=== PATIENT | male | born 1935 | race Caucasian/White ===

== ENCOUNTER → 2017-03-17 | Outpatient (CLI) | payer MEDICARE ==
[2017-03-17 16:34] LABS: CHCM 33.9; HCT 48.4 % (39.0-53.0); HDW 2.59; HGB 16.3 gm/dL (13.0-17.5); MCH 32.9 pg (25.0-35.0); MCHC 33.6 g/dL (31.0-37.0); MCV 97.8 fL (80.0-100.0); Mean Platelet Volume 8.7; RBC 4.95 m/uL (4.30-5.90); RDW 14.4 % (11.5-15.5); WBC 6.9 k/uL (3.8-10.6)
[2017-03-17 16:45] LABS: ALT 61 U/L (21-72); AST 34 U/L (17-59)
== END | disposition home or self-care (01) ==
LOC: LABWHC1 16:09
PROVIDERS: ATTEND Dermatology Dermatopathology
DX: L40.0 Psoriasis vulgaris (principal); Z79.899 Other long term (current) drug therapy
CPT/HCPCS: 36415; 84450; 84460; 85027

== ENCOUNTER → 2017-06-08 | Outpatient (CLI) | payer MEDICARE ==
[2017-06-08 09:18] LABS: CH 32.3; CHCM 32.4; HDW 2.68; HGB 16.5 gm/dL (13.0-17.5); MCH 32.4 pg (25.0-35.0); MCHC 32.3 g/dL (31.0-37.0); MCV 100.2 fL (80.0-100.0); Macrocytosis Slight; Mean Platelet Volume 7.2; RBC 5.09 m/uL (4.30-5.90); RDW 14.7 % (11.5-15.5); WBC 5.6 k/uL (3.8-10.6)
[2017-06-08 09:39] LABS: ALT 55 U/L (21-72); AST 36 U/L (17-59)
== END | disposition home or self-care (01) ==
LOC: LABWHC1 08:25
PROVIDERS: ATTEND Dermatology Dermatopathology
DX: L40.0 Psoriasis vulgaris (principal); Z79.899 Other long term (current) drug therapy
CPT/HCPCS: 36415; 84450; 84460; 85027

== ENCOUNTER → 2017-12-18 | Outpatient (CLI) | payer MEDICARE ==
[2017-12-18 15:06] LABS: HCT 44.9 % (39.0-53.0); HGB 15.7 gm/dL (13.0-17.5); MCH 33.4 pg (25.0-35.0); MCHC 34.9 g/dL (31.0-37.0); MCV 95.6 fL (80.0-100.0); Mean Platelet Volume 7.6; Platelet Count 199 k/uL (150-450); RBC 4.69 m/uL (4.30-5.90); RDW 13.5 % (11.5-15.5); WBC 7.9 k/uL (3.8-10.6)
[2017-12-18 15:13] LABS: ALT 51 U/L (21-72); AST 32 U/L (17-59)
== END | disposition home or self-care (01) ==
LOC: LABWHC1 14:43
PROVIDERS: ATTEND Dermatology Dermatopathology
DX: L40.0 Psoriasis vulgaris (principal); Z79.899 Other long term (current) drug therapy
CPT/HCPCS: 36415; 84450; 84460; 85027

== ENCOUNTER → 2018-05-25 | Outpatient (CLI) | payer MEDICARE ==
[2018-05-25 11:12] LABS: HCT 51.9 % (39.0-53.0); MCH 31.6 pg (25.0-35.0); MCHC 32.7 g/dL (31.0-37.0); MCV 96.5 fL (80.0-100.0); Mean Platelet Volume 7.4; Platelet Count 157 k/uL (150-450); RBC 5.38 m/uL (4.30-5.90); RDW 14.2 % (11.5-15.5); WBC 6.2 k/uL (3.8-10.6)
[2018-05-25 12:51] LABS: Albumin 4.2 g/dL (3.5-5.0); Calcium 9.4 mg/dL (8.4-10.2); Total Bilirubin 0.8 mg/dL (0.2-1.3)
[2018-05-25 13:05] LABS: T4, Free (Free Thyroxine) 1.27 ng/dL (0.78-2.19)
[2018-05-25 13:20] LABS: Prostate Specific Antigen 4.82 ng/mL (0.00-4.00)
[2018-05-25 19:04] LABS: Hemoglobin A1C 6.7 % (4.0-6.0)
== END | disposition home or self-care (01) ==
LOC: LABWHC1 10:05
PROVIDERS: ATTEND Family Medicine
DX: Z00.00 Encounter for general adult medical examination without abnormal findings (principal); E11.9 Type 2 diabetes mellitus without complications; E03.9 Hypothyroidism, unspecified; N52.01 Erectile dysfunction due to arterial insufficiency; M06.9 Rheumatoid arthritis, unspecified
CPT/HCPCS: 36415; 80053; 80061; 83036; 84153; 84439; 84443; 85027

== ENCOUNTER → 2019-01-04 | Outpatient (CLI) | payer MEDICARE | END | disposition home or self-care (01) | LOC: LABWHC1 11:17 | PROVIDERS: ATTEND Dermatology Dermatopathology | DX: L40.0 Psoriasis vulgaris (principal); Z79.899 Other long term (current) drug therapy | CPT/HCPCS: 36415; 84450 ==

== ENCOUNTER 2019-02-03 20:05 | Emergency (ER) | payer MEDICARE ==
[2019-02-03 20:22] VITALS: TEMP 98.6
--- NOTE | 2019-02-03 21:37 | ED ---
General Adult HPI - General Source: patient Mode of arrival: ambulatory Limitations: no limitations <Tayo Cr - Last Filed: 02/03/19 22:14> <Jennie Russell - Last Filed: 02/04/19 02:52> - General Chief complaint: Extremity Injury, Lower Stated complaint: Foot injury/ Swelling Time Seen by Provider: 02/03/19 20:30 - History of Present Illness Initial comments: Patient is an 83-year-old male presents emergency Department with left ankle swelling. Patient reports one week ago he was working on his deck when he slipped and felt a pop on the posterior aspect of his left upper leg. Patient reports the following day he was walking downstairs and fell because his left leg "gave out". Patient reports slowly developing ecchymosis along the posterior aspect of the left upper leg sporadically down to his foot. Patient reports waking up yesterday with left ankle edema but no pain. Patient reports he feels slight discomfort but is able to ambulate without difficulty. Patient reports going to an urgent care 5 days ago. They diagnosed him with a hip sprain. Patient denies taking any medication to alleviate the pain. Patient denies any numbness or tingling. Patient denies shortness of breath, chest pain, chest tightness or prolonged periods of inactivity. (Tayo Cr) - Related Data Home Medications Medication Instructions Recorded Confirmed Aspirin 1 tab PO DAILY 04/01/18 04/01/18 Clobetasol Propionate [Impoyz 60 gm TOPICAL DAILY 04/01/18 04/01/18 0.25%] Levothyroxine Sodium [Tirosint] 0.5 mg PO DAILY 04/01/18 04/01/18 [place]-3 Fatty Acids/Fish Oil [Fish 1 cap PO DAILY 04/01/18 04/01/18 Oil 1,000 mg Softgel] Ubidecarenone [Co Q-10] 1 cap PO DAILY 04/01/18 04/01/18 Allergies Allergy/AdvReac Type Severity Reaction Status Date / Time atorvastatin [From Lipitor] AdvReac Unknown Verified 02/03/19 20:22 Review of Systems ROS Other: All systems not noted in ROS Statement are negative. <Tayo Cr - Last Filed: 02/03/19 22:14> ROS Other: All systems not noted in ROS Statement are negative. <Jennie Russell Olesya - Last Filed: 02/04/19 02:52> ROS Statement: Those systems with pertinent positive or pertinent negative responses have been documented in the HPI. Past Medical History Past Medical History: Hyperlipidemia Additional Past Medical History / Comment(s): hard of hearing, colon CA, hypothyroidism, psoriasis History of Any Multi-Drug Resistant Organisms: None Reported Past Surgical History: Appendectomy, Cholecystectomy, Tonsillectomy Additional Past Surgical History / Comment(s): hemicolectomy, bakers cyst removal Additional Past Anesthesia/Blood Transfusion Reaction / Comment(s): hard to wake up Past Psychological History: No Psychological Hx Reported Smoking Status: Former smoker Past Alcohol Use History: Daily Past Drug Use History: None Reported <Tayo Cr - Last Filed: 02/03/19 22:14> General Exam Limitations: no limitations General appearance: alert, in no apparent distress Head exam: Present: atraumatic, normocephalic, normal inspection Eye exam: Present: normal appearance, PERRL, EOMI Pupils: Present: normal accommodation ENT exam: Present: normal exam, mucous membranes moist, TM's normal bilaterally Neck exam: Present: normal inspection Respiratory exam: Present: normal lung sounds bilaterally. Absent: respiratory distress, wheezes, rales Cardiovascular Exam: Present: regular rate, normal rhythm, normal heart sounds Left Hip exam: Present: normal inspection, full ROM. Absent: tenderness, swelling, abrasion, laceration, ecchymosis, erythema Upper Leg exam: Present: full ROM, tenderness (Mild tenderness in the posterior aspect with palpation), ecchymosis (Sporadic ecchymosis). Absent: swelling, erythema Knee exam: Present: normal inspection, full ROM, ecchymosis (Spermatic). Absent: tenderness, swelling, posterior draw sign Lower Leg exam: Present: normal inspection, full ROM, tenderness (Lateral pain.), ecchymosis (Sporadic). Absent: swelling, abrasion, laceration, erythema, Homans' sign Ankle exam: Present: swelling (Localized to the medial and lateral malleoli), ecchymosis Foot/Toe exam: Present: normal inspection, full ROM, swelling Neurovascular tendon exam: Present: no vascular compromise Gait: observed and normal Back exam: Present: normal inspection. Absent: CVA tenderness (R), CVA tenderness (L) Neurological exam: Present: alert, oriented X3 Psychiatric exam: Present: normal affect, normal mood Skin exam: Present: warm, intact, normal color <aTyo Cr - Last Filed: 02/03/19 22:14> Course Vital Signs 02/03/19 02/03/19 20:18 22:27 Temperature 98.6 F 98.6 F Pulse Rate 74 70 Respiratory 20 18 Rate Blood Pressure 136/62 133/70 O2 Sat by Pulse 94 L 97 Oximetry Medical Decision Making <Tayo Cr - Last Filed: 02/03/19 22:14> <Jennie Russell - Last Filed: 02/04/19 02:52> - Medical Decision Making Patient is an 83-year-old male presenting to emergency Department with left ankle swelling. X-ray of the left ankle and left hip is negative for acute fracture or dislocations. Doppler ultrasound is negative for DVTs. Based on physical examination a history of suspect the patient to have a possible muscle tear which would cause the sporadic ecchymosis. Patient advised to monitor the ecchymosis as well as the swelling on the left ankle. Patient advised to keep foot elevated and use hot or cold packs. Patient advised to return to emergency department if symptoms worsen. Patient denies follow primary care. Case discussed with physician. (Tayo Cr) I was available for consultation in the emergency department. The history and physical exam were done by the midlevel provider. I was consulted for this patient's care. I reviewed the case with the midlevel provider and based on their presentation of the patient, I agree with the assessment, medical decision making and plan of care as documented. Chart was dictated using [employer] dictation software. Attempts were made to correct any dictation errors however some typographical errors may persist. (Jennie Russell) Disposition Is patient prescribed a controlled substance at d/c from ED?: No Time of Disposition: 22:17 <Tayo Cr - Last Filed: 02/03/19 22:14> <Jennie Russell - Last Filed: 02/04/19 02:52> Clinical Impression: Ankle sprain Disposition: HOME SELF-CARE Condition: Stable Instructions (If sedation given, give patient instructions): Ankle Sprain (ED) Additional Instructions: Please keep foot elevated and use cold and hot packs for symptomatic control. Please monitor the bruising along the left leg. Please follow-up with primary care. Please return to emergency department if symptoms worsen. Referrals: Jeffery Gill DO [Primary Care Provider] - 1-2 days Lenin Davidson DO [Doctor of Osteopathic Medicine] - 1-2 days
--- NOTE | 2019-02-03 21:46 | XR ---
EXAMINATION TYPE: XR ankle complete LT DATE OF EXAM: 02/03/2019 COMPARISON: NONE HISTORY: Pain TECHNIQUE: 3 views FINDINGS: There is some soft tissue swelling around the ankle joint. There is small degenerative cyst formation in the talus. There is no fracture line seen. There is no dislocation. IMPRESSION: Soft tissue swelling. No fracture seen. There is degenerative cyst formation in the media l dome of the talus.
--- NOTE | 2019-02-03 21:47 | XR ---
EXAMINATION TYPE: XR Hip Complete LT DATE OF EXAM: 02/03/2019 COMPARISON: NONE HISTORY: Hip pain TECHNIQUE: 2 views FINDINGS: I see no fracture nor dislocation. Acetabulum is intact. Hip joint spaces fairly normal. Sa croiliac joint appears intact. IMPRESSION: No acute abnormality of the left hip.
--- NOTE | 2019-02-03 21:52 | US ---
EXAMINATION TYPE: US venous doppler duplex LE LT DATE OF EXAM: 02/03/2019 9:32 PM COMPARISON: NONE CLINICAL HISTORY: Pain. Left leg pain SIDE PERFORMED: TECHNIQUE: The lower extremity deep venous system is examined utilizing real time linear array sonog [place] with graded compression, doppler sonography and color-flow sonography. VESSELS IMAGED: External Iliac Vein (EIV) Common Femoral Vein Deep Femoral Vein Greater Saphenous Vein * Femoral Vein Popliteal Vein Small Saphenous Vein * Proximal Calf Veins (* superficial vessels) Left Leg: Negative for DVT No evidence of DVT left leg. IMPRESSION: Normal left leg duplex venous sonogram.
[2019-02-03 22:28] VITALS: BP 133/70; PULSE 70; RESP 18
== END 2019-02-03 22:28 | disposition home or self-care (01) ==
LOC: EC 20:05
DX: S93.402A Sprain of unspecified ligament of left ankle, initial encounter (principal); S80.02XA Contusion of left knee, initial encounter; S80.12XA Contusion of left lower leg, initial encounter; S70.12XA Contusion of left thigh, initial encounter; H91.90 Unspecified hearing loss, unspecified ear; E03.9 Hypothyroidism, unspecified; L40.9 Psoriasis, unspecified; Z87.891 Personal history of nicotine dependence; Z88.8 Allergy status to other drugs, medicaments and biological substances; Z79.52 Long term (current) use of systemic steroids; Z79.82 Long term (current) use of aspirin; Z79.890 Hormone replacement therapy; Z79.899 Other long term (current) drug therapy; Z85.038 Personal history of other malignant neoplasm of large intestine; Z90.49 Acquired absence of other specified parts of digestive tract; W10.9XXA Fall (on) (from) unspecified stairs and steps, initial encounter; Y93.01 Activity, walking, marching and hiking
CPT/HCPCS: 73502; 99284

== ENCOUNTER → 2020-06-29 | Outpatient (CLI) | payer MEDICARE ==
--- NOTE | 2020-06-29 15:14 | XR ---
EXAMINATION TYPE: XR knee complete bilateral DATE OF EXAM: 06/29/2020 CLINICAL HISTORY: Injury with pain. TECHNIQUE: Three views of the bilateral knees are obtained. COMPARISON: None. FINDINGS: There is no acute fracture/dislocation evident in either knee. Fairly symmetric moderate t o severe medial tibiofemoral compartment joint space loss is present. There is symmetric moderate pat ellofemoral compartment joint space loss. Mild tricompartment symmetric spurring. The overlying soft tissue appears unremarkable bilaterally. IMPRESSION: There is no acute fracture or dislocation in either knee.
--- NOTE | 2020-06-29 15:24 | XR ---
EXAMINATION TYPE: XR Hip Bilateral Complete DATE OF EXAM: 06/29/2020 CLINICAL HISTORY: Bilateral hip pain. Recent injury. TECHNIQUE: AP and frogleg views of the bilateral hips are obtained. COMPARISON: Left hip x-ray February 03, 2019. FINDINGS: There is no acute fracture/dislocation evident in either hip. Mild to borderline moderate axial joint space loss with mild to moderate acetabular spurring bilaterally. Some right-sided iris l calcifications are present. The overlying soft tissue appears unremarkable bilaterally. IMPRESSION: There is no acute fracture or dislocation in either hip.
== END | disposition home or self-care (01) ==
LOC: RADXRMAIN 13:21
PROVIDERS: ATTEND Family Medicine
DX: M25.551 Pain in right hip (principal); M25.552 Pain in left hip; M25.541 Pain in joints of right hand; M25.542 Pain in joints of left hand
CPT/HCPCS: 73521

== ENCOUNTER → 2022-01-01 | Outpatient (CLI) | payer MEDICARE ==
--- NOTE | 2022-01-06 14:34 | US ---
EXAMINATION TYPE: US arterial LE single level DATE OF EXAM: 01/01/2022 1:01 PM CLINICAL HISTORY: I73.9 PAD. Doppler Waveforms: Right: Multiphasic Left: Multiphasic Ankle-Brachial Indices: Right: 1.13 Left: 1.12 Toe Brachial Indices: Right: 0.61 Left: 0.6 by IMPRESSION: See above
== END | disposition home or self-care (01) ==
LOC: RADUSWWP 12:09
PROVIDERS: ATTEND Family Medicine
DX: I73.9 Peripheral vascular disease, unspecified (principal)
CPT/HCPCS: 93922

== ENCOUNTER → 2023-11-12 | Outpatient (CLI) | payer MEDICARE ==
--- NOTE | 2023-11-13 08:46 | XR ---
EXAMINATION TYPE: XR lumbosacral spine min 4V DATE OF EXAM: 11/12/2023 2:59 PM CLINICAL INDICATION:Male, 87 years old with history of M54.50; [facility] COMPARISON: None TECHNIQUE: XR lumbosacral spine min 4V - Frontal, lateral , bilateral oblique and coned in L5-S1 late ral views of the spine. FINDINGS: No evidence of any acute osseous pathology. No evidence of loss of vertebral body height i s seen. There is straightened alignment of the lumbar vertebral bodies with retrolisthesis of L1 and L2 and L2 on L3. This grade 1 borderline grade 2 anterolisthesis of L5 on S1.. Scattered disc space n arrowing at multiple levels of complete disc height loss. Multilevel marginal osteophyte formation th roughout the visualized spine. There is facet joint arthropathy throughout the spine worse in the low er spine L3-L5.. Scattered at least severe neural foraminal stenosis at L5-S1. Atherosclerosis of the arterial vasculature. IMPRESSION: 1. No acute fracture. 2. Severe multilevel disc degeneration. 3. Retrolisthesis of L1 and L2 and L2 on L3. 4. Grade 1 borderline grade 2 anterolisthesis of L5 on S1. 5. Highly suggestive Baastrup's disease.
== END | disposition home or self-care (01) ==
LOC: RADXRMAIN 13:59
PROVIDERS: ATTEND Family Medicine
DX: M51.36 Other intervertebral disc degeneration, lumbar region (principal); M43.16 Spondylolisthesis, lumbar region
CPT/HCPCS: 72110

== ENCOUNTER → 2023-11-13 | Outpatient (CLI) | payer MEDICARE ==
--- NOTE | 2023-11-13 17:38 | XR ---
EXAMINATION TYPE: XR cervical spine comp DATE OF EXAM: 11/13/2023 4:43 PM CLINICAL INDICATION:Male, 87 years old with history of M54.2 CERVICALGIA; [facility] COMPARISON: None TECHNIQUE: The cervical spine was imaged in frontal, lateral, odontoid and bilateral oblique. FINDINGS: The osseous structures show normal alignment without evidence of an acute fracture. There are osteoph ytes noted throughout the cervical spine on the anterior and lateral aspects of the vertebral bodies. The intervertebral disk spaces are narrowed at multiple levels. Pedicles are intact. Soft tissues a re within normal limits. The odontoid appears intact. IMPRESSION: 1. No fracture or dislocation. 2. Mild degenerative disc disease changes of the cervical spine.
== END | disposition home or self-care (01) ==
LOC: RADXRMAIN 16:20
PROVIDERS: ATTEND Family Medicine
DX: M50.30 Other cervical disc degeneration, unspecified cervical region (principal)
CPT/HCPCS: 72050

== ENCOUNTER → 2024-11-10 | Outpatient (CLI) | payer MEDICARE ==
[2024-11-10 14:53] LABS: Basophils # (A) 0.03 X 10*3/uL (0.00-0.10); Basophils % (A) 0.5 %; Eosinophils # (A) 0.16 X 10*3/uL (0.04-0.35); Eosinophils % (A) 2.5 %; HCT 45.2 % (39.6-50.0); HGB 14.7 g/dL (13.0-17.0); Lymphocytes # (A) 1.13 X 10*3/uL (0.90-5.00); Lymphocytes % (A) 17.8 %; MCH 32.5 pg (27.0-32.0); MCHC 32.5 g/dL (32.0-37.0); MCV 99.8 FL (80.0-97.0); Mean Platelet Volume 11.5 FL (9.5-12.2); Monocytes # (A) 0.53 X 10*3/uL (0.20-1.00); Monocytes % (A) 8.3 %; NRBC Per 100 WBC 0 X 10*3/uL (0.00-0.01); Neutrophils # (A) 4.48 X 10*3/uL (1.80-7.70); Neutrophils % (A) 70.6 %; Platelet Count 193 X 10*3/uL (140-440); RBC 4.53 X 10*6/uL (4.40-5.60); RDW 14.8 % (11.5-14.5); WBC 6.35 X 10*3/uL (4.50-10.00)
[2024-11-10 15:10] LABS: ALT 38 U/L (10-49); AST 47 U/L (14-35); Albumin 4.2 g/dL (3.8-4.9); Albumin/Globulin Ratio 1.75 Ratio (1.60-3.17); Alkaline Phosphatase 101 U/L (41-126); BUN/Creat Ratio 16.77 Ratio (12.00-20.00); Blood Urea Nitrogen 21.8 mg/dL (9.0-27.0); Calcium 9.2 mg/dL (8.7-10.3); Carbon Dioxide 22.9 mmol/L (21.6-31.8); Chloride 103 mmol/L (96-109); Globulin 2.4 g/dL (1.6-3.3); Glucose 150 mg/dL (70-110); LDL Cholesterol,Calculated 131.2 mg/dL (0.0-131.0); Potassium 4.9 mmol/L (3.5-5.5); Sodium 137 mmol/L (135-145); Total Bilirubin 0.7 mg/dL (0.3-1.2); Total Protein 6.6 g/dL (6.2-8.2); VLDL Calculation 19.26 mg/dL (5.00-40.00)
[2024-11-10 16:03] LABS: Hepatitis C IgG Antibody Nonreactive (Nonreactive)
[2024-11-10 16:14] LABS: Hepatitis B Surface AB- Quant 3.5 mIU/mL
[2024-11-10 16:37] LABS: Hepatitis B Surface Antigen Nonreactive (Nonreactive)
== END | disposition home or self-care (01) ==
LOC: LABWHC1 09:40
PROVIDERS: ATTEND Nurse Practitioner Family
DX: L40.0 Psoriasis vulgaris (principal)
CPT/HCPCS: 36415; 80048; 80061; 80076; 85025; 86480; 86706; 86803; 87340

== ENCOUNTER → 2024-12-27 | Outpatient (CLI) | payer MEDICARE ==
--- NOTE | 2024-12-27 15:03 | XR ---
EXAMINATION TYPE: XR chest 2V DATE OF EXAM: 12/27/2024 2:56 PM COMPARISON: None. CLINICAL INDICATION: Male, 89 years old with history of R05.3 CHRONIC COUGH: Shortness of breath TECHNIQUE: XR chest 2V views of the chest are obtained. FINDINGS: Scattered senescent parenchymal changes noted. Hyperinflation compatible with COPD. Patchy basilar infiltrates suspicious for pneumonia. Correlate clinically and progress studies recomm ended. Heart size is stable. Mediastinal structures are stable and grossly unremarkable. No evidence for hilar prominence. Degenerative changes dorsal spine. IMPRESSION: 1. Patchy basilar infiltrates suspicious for pneumonia. Correlate clinically and progress studies rec ommended. [facility], , 12/27/2024 3:00 PM
== END | disposition home or self-care (01) ==
LOC: RADXRMAIN 14:44
PROVIDERS: ATTEND Nurse Practitioner Family
DX: R91.8 Other nonspecific abnormal finding of lung field (principal); R05.3 Chronic cough
CPT/HCPCS: 71046

== ENCOUNTER → 2025-01-10 | Outpatient (CLI) | payer MEDICARE ==
--- NOTE | 2025-01-10 11:18 | XR ---
EXAMINATION TYPE: XR chest 2V DATE OF EXAM: 01/10/2025 10:48 AM COMPARISON: Chest radiographs from 12/27/2024. CLINICAL INDICATION: Male, 89 years old with history of J18.9Pneumonia; H TECHNIQUE: XR chest 2V Frontal and lateral views of the chest. FINDINGS: Lungs/Pleura: There is flattening of the diaphragm with increased lucency of the lungs. No evidence o f pneumothorax, pleural effusion or focal consolidation. Pulmonary vascularity: Unremarkable. Heart/mediastinum: Cardiomediastinal silhouette is unremarkable. Musculoskeletal: No acute osseous pathology. IMPRESSION: 1. No acute cardiopulmonary disease process. 2. COPD changes. [facility], , 01/10/2025 11:16 AM
== END | disposition home or self-care (01) ==
LOC: RADXRMAIN 10:41
PROVIDERS: ATTEND Family Medicine
DX: J18.9 Pneumonia, unspecified organism (principal); J44.9 Chronic obstructive pulmonary disease, unspecified
CPT/HCPCS: 71046